=== PATIENT | female | born 1960 | race Caucasian/White ===

== ENCOUNTER 2023-03-11 07:37 | Day surgery (SDC) | payer OTHER ==
[~2023-03-11 07:37] MED LIST: Lactated Ringers 1,000 ML IV PRN; Sodium Chloride 0.9% 10 ML Syringe FLUSH PRN
[2023-03-11] MEDS ORDERED: fentaNYL 100 MCG/2 ML SDV IV ONE (07:38)
[2023-03-11] MEDS ORDERED: Midazolam 1 MG/ML 2 ML SDV IV ONE (07:38)
[2023-03-11] MEDS ORDERED: acetaZOLAMIDE 500 MG Cap.ER PO ONE (09:30)
== END 2023-03-11 09:55 | disposition home or self-care (01) ==
LOC: FB.SDS 07:37
PROVIDERS: ATTEND Ophthalmology
DX: H25.813 Combined forms of age-related cataract, bilateral (principal); H43.813 Vitreous degeneration, bilateral; H04.123 Dry eye syndrome of bilateral lacrimal glands; I10 Essential (primary) hypertension; J45.909 Unspecified asthma, uncomplicated; F32.5 Major depressive disorder, single episode, in full remission; F41.1 Generalized anxiety disorder; E78.5 Hyperlipidemia, unspecified; Z87.891 Personal history of nicotine dependence; Z79.899 Other long term (current) drug therapy
CPT/HCPCS: 66984; A9270; J2250; J3010; J3490; 00142